=== PATIENT | female | born 1985 | race Caucasian/White ===

== ENCOUNTER 2017-04-22 00:39 | Emergency (ER) | payer BC ==
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
[2017-04-22 04:45] VITALS: BP 114/77
== END 2017-04-22 04:44 | disposition home or self-care (01) ==
LOC: ED 00:39
DX: O9A.311 Physical abuse complicating pregnancy, first trimester (principal); Z3A.11 11 weeks gestation of pregnancy; R11.2 Nausea with vomiting, unspecified; S39.91XA Unspecified injury of abdomen, initial encounter; Y09 Assault by unspecified means; Y93.9 Activity, unspecified; Y92.9 Unspecified place or not applicable
CPT/HCPCS: 36415; 84702; 86850; 86900; 86901; 99282

== ENCOUNTER 2017-06-08 13:25 | Emergency (ER) | payer OTHER ==
[2017-06-08 13:43] VITALS: BP 120/73
--- NOTE | 2017-06-08 14:27 | UC ---
Maricruz Van Gabriel, scribed for Jeff Deleon MD on 06/08/17 at 1350 . Back Pain HPI - HPI Summary HPI Summary: This patient is a 32 year old F presenting to [facility] accompanied by family with a chief complaint of left sided flank since this morning that has been gradually getting worse. Patient reports increased urination. Patient denies unusual vaginal discharge and dysuria. The patient is currently 17 weeks . - History of Current Complaint Chief Complaint: UCBackPain Stated Complaint: LOWER BACK PAIN Hx Obtained From: Patient Hx Last Menstrual Period: 01/06/15 Onset/Duration: Sudden Onset, Still Present Timing: Constant Severity Initially: Mild Severity Currently: Mild Pain Intensity: 8 Pain Scale Used: 0-10 Numeric Associated Signs And Symptoms: Positive: Negative - unusual vaginal discharge and dysuria, Other - increased urination - Allergies/Home Medications Allergies/Adverse Reactions: Allergies Allergy/AdvReac Type Severity Reaction Status Date / Time No Known Allergies Allergy Verified 04/22/17 00:46 Home Medications: Home Medications Multivitamins & [place] [ Gummies/Dha & Fo 0.4-32.5 mg] [History] Pseudoephedrine-Ibuprofen [Cold & Sinus Relief 30-200 mg] 06/08/17 [History] PMH/Surg Hx/FS Hx/Imm Hx Previously Healthy: Yes - Surgical History Surgical History: Yes Surgery Procedure, Year, and Place: tonsillectomy 2004 - Family History Known Family History: Positive: Other - Hyperthyroid Negative: Cardiac Disease, Hypertension, Diabetes - Social History Alcohol Use: Rare Substance Use Type: None Smoking Status (MU): Never Smoked Tobacco Have You Smoked in the Last Year: No - Immunization History Most Recent Influenza Vaccination: 03/22/14 Most Recent Tetanus Shot: 01/09/14 Most Recent Pneumonia Vaccination: none Review of Systems Genitourinary: Negative - unusual vaginal discharge and dysuria, Other - increased urination Musculoskeletal: Negative - flank/back pain on left side All Other Systems Reviewed And Are Negative: Yes Physical Exam Triage Information Reviewed: Yes Appearance: Pain Distress - moderate Vital Signs: Initial Vital Signs Temp 98.1 F 06/08/17 13:34 Pulse 72 06/08/17 13:34 Resp 16 06/08/17 13:34 BP 120/73 06/08/17 13:34 Pulse Ox 100 06/08/17 13:34 Vital Signs Reviewed: Yes Eye Exam: Normal ENT Exam: Normal ENT: Positive: Normal ENT inspection Neck exam: Normal Neck: Positive: Supple, Nontender Respiratory Exam: Normal, Other - CTA Respiratory: Positive: Normal breath sounds Cardiovascular Exam: Normal Cardiovascular: Positive: RRR Abdominal Exam: Normal Abdomen Description: Positive: Nontender, Soft Musculoskeletal Exam: Other - Tenderness over left flank Musculoskeletal: Positive: Strength Intact, ROM Intact Neurological Exam: Normal - sensory/motor intact, A&O x3 Psychological Exam: Normal - affect/mood appropriate Skin Exam: Normal - warm, color reflects adequate perfusion, dry Back Pain Course/Dx - Course Course Of Treatment: RECOMMENDED GOING DIRECTLY TO THE EMERGENCY DEPARTMENT FOR FURTHER EVALUATION AND CARE WE DO NOT HAVE THE ABILITY TO OBTAIN STAT LABS AND HAVE OB HERE IN CLINIC. STABLE AT TRANSFER. DISCUSSED WITH ELVA MURILLO IN THE ED. - Differential Dx/Diagnosis Provider Diagnoses: LEFT FLANK PAIN IN . Discharge - Discharge Plan Condition: Stable Disposition: OTHER Discharge Disposition Comment: PATIENT IS TO GO DIRECTLY TO THE EMERGENCY DEPARTMENT. Patient Education Materials: Abdominal Pain in (ED), Flank Pain (ED) Referrals: Verona Calderon MD [Medical Doctor] - Additional Instructions: GO DIRECTLY TO THE EMERGENCY DEPARTMENT FOR FURTHER EVALUATION OF YOUR FLANK PAIN AT 17 WEEKS OF . The documentation as recorded by the Maricruz hannon Gabriel accurately reflects the service I personally performed and the decisions made by me, Jeff Deleon MD.
== END 2017-06-08 14:00 ==
LOC: UCEAST 13:25
DX: O26.892 Other specified pregnancy related conditions, second trimester (principal); R10.9 Unspecified abdominal pain; Z3A.17 17 weeks gestation of pregnancy
CPT/HCPCS: 99212; G0463

== ENCOUNTER 2017-06-08 14:22 | Emergency (ER) | payer BC, OTHER ==
[2017-06-08 14:30] VITALS: BP 143/73
[2017-06-08 15:15] LABS: Hematocrit 38 % (35-47); Hemoglobin 13.1 g/dl (12.0-16.0); Mean Corpuscular HGB Conc 34 g/dl (31-36); Mean Corpuscular Hemoglobin 30 pg (27-31); Mean Corpuscular Volume 88 fL (80-97); Mean Platelet Volume 8 um3 (7.4-10.4); Red Blood Count 4.34 10^6/ul (4.0-5.4); Red Cell Distribution Width 13 % (10.5-15); White Blood Count 19.9 10^3/ul (3.5-10.8)
[2017-06-08 15:55] LABS: Albumin 4.1 g/dL (3.2-5.2); BUN/Creatinine Ratio 8.9 (8-20); EGFR African American 163.5 (>60); EGFR Non-African American 127.1 (>60); Globulin 3.3 g/dL (2-4); Potassium 3.4 mmol/L (3.5-5.0); Total Bilirubin 0.5 mg/dL (0.2-1.0); Total Protein 7.4 g/dL (6.4-8.9)
== END 2017-06-08 15:29 | disposition left against medical advice (07) ==
LOC: ED 14:22
DX: R10.9 Unspecified abdominal pain (principal); Z53.21 Procedure and treatment not carried out due to patient leaving prior to being seen by health care provider
CPT/HCPCS: 36415; 80053; 83605; 85025

== ENCOUNTER 2017-10-18 17:47 | Inpatient (IN) | payer BC, OTHER ==
[2017-10-18] MEDS ORDERED: Misoprostol TAB* 100 MCG PO ONE ×2 (17:59→22:50)
--- NOTE | 2017-10-18 18:12 | HP ---
General Information - General Information Maternal Age: 32 Grav: 4 Para: 1 SAB: 0 IEA: 2 Estimated Due Date: 11/14/17 Determined By: LMP Gestational Age in Weeks and Days: 36 Weeks and 1 Days Maternal Blood Type and Rh: A Positive - Results this Serology/RPR Result: Non-Reactive Rubella Result: Immune HBsAg Result: Negative HIV Result: Negative GBS Culture Result: Negative Past Medical History Delivery History: Hx Complicated Vaginal Delivery - Meconium, maternal exhaustion, pushed 2'40", episiotomy, vacuum assist, PPH Pertinent Past Medical History: Non-Contributory Pertinent Past Surgical History: See Records - tonsillectomy Pertinent Family History: See Records - Thyroid dz - Antepartal Records Antepartal Records: Reviewed, Uncomplicated Review of Systems Constitutional: Comfortable CV Complaint: No Respiratory: Shortness of Breath: No Gastrointestinal: No Nausea/Vomiting, Normal Bowel Movement Genitourinary: Leaking Fluid, No Dysuria, No Bleeding Musculoskeletal: No Complaint Neurological: No Headache, No Visual Changes Movement: Normal Exam Allergies/Adverse Reactions: Allergies No Known Allergies Allergy (Verified 04/22/17 00:46) BP 136/76 T 98.3 RR 18 HR 90 O2 98 - Measurements Height: 5 ft 5 in Weight: 258 lb Weight in lbs: 258 Body Mass Index (BMI): 42.9 Pre- Weight: 218 lb Weight Gained This : 40 lbs and 0 ozs - Exam Abdomen: No Upper Quadrant Pain Breast: Breast Exam Deferred CVA: No CVA Tenderness Extremities: No Edema Heart: Normal Rhythm/Heart Sounds HEENT: No Significant Findings Lungs: Clear Bilaterally Rectal: Rectal Exam Deferred Reflexes: DTR 2+, - - no clonus Thyroid: - - WNL @ entry to care - Cervical Exam Deferred Exam by RN @ 1230 1cm/thick/vertex -3 - Abdominal Exam Abdomen Exam: Non-Tender Abdomen Exam Comment: EFW 6.5-7lb - Membranes Membrane Status: SROM - Ultrasound/Biophysical Profile Ultrasound Status: Not Done EFM Findings - External Monitor Findings Baseline Heart Rate: 125 External Monitor Findings: Accelerations Present, No Pattern of Variable or Late Decelerations, Variability Moderate Contractions: Irregular, Mild, < 45 Seconds Contraction Frequency: Q 5-8 Assessment/Plan - Reason for Visit Reason for Visit: IUP @ 36+1 weeks gestation here for induction of labor due to PROM without labor. No evidence metabolic acidemia. - Obstetrical Risk Factors Obstetrical Risk Factors: - Plan Plan: Induction, Cervical Ripening Plan Comment: Admit to L&D, Cytotec PO for cervical ripening with repeat doses PRN. PARQ discussion of pitocin and may use PRN. IV in labor d/t history of PPH. Anticipate SVB. - Date/Time of Admission Date of Admission: 10/18/17 Time of Admission: 18:00
[2017-10-18] MEDS ORDERED: Acetaminophen TAB* 325 MG PO ONE (21:32)
[2017-10-19] MEDS ORDERED: Promethazine INJ(RESTRICTED)* 25 MG/ML 1 ML VIAL IV PRN (07:05)
[2017-10-19] MEDS ORDERED: Nalbuphine* 20 MG/ML 1 ML VIAL IV PRN (07:05)
[2017-10-19] MEDS ORDERED: Nalbuphine* 20 MG/ML 1 ML VIAL ONE (07:11)
[2017-10-19] MEDS ORDERED: Promethazine INJ(RESTRICTED)* 25 MG/ML 1 ML VIAL ONE (07:11)
[2017-10-19] MEDS ORDERED: Oxytocin in LR* 20 UNITS/1,000 ML BAG IVPB ONE (08:36)
[2017-10-19] MEDS ORDERED: fentaNYL* 50 MCG/ML 2 ML VIAL (100 MCG VIAL) ONE (08:54)
[2017-10-19] MEDS ORDERED: Acetaminophen TAB* 325 MG PO PRN (09:14)
[2017-10-19] MEDS ORDERED: Witch Hazel PAD* JAR TOPICAL PRN (09:14)
[2017-10-19] MEDS ORDERED: Dibucaine 1% 28.35 GM TUBE PR PRN (09:14)
[2017-10-19] MEDS ORDERED: Glycerin ADULT SUPP PR PRN (09:14)
[2017-10-19] MEDS ORDERED: Oxytocin in LR* 20 UNITS/1,000 ML BAG IVPB SCH (10:00)
[2017-10-19] MEDS: Docusate CAP* 100 MG PO SCH ×2 (12:03→20:31)
[2017-10-19] MEDS: Ibuprofen TAB* 600 MG PO PRN ×2 (12:03→21:56)
[2017-10-19] MEDS ORDERED: Simethicone TAB* 80 MG TAB.CHEW PO SCH (12:30)
[2017-10-20 06:42] LABS: ABS Basophils 0 10^3/ul (0-0.2); ABS Eosinophils 0.1 10^3/ul (0-0.6); ABS Lymphocytes 2.2 10^3/ul (1.0-4.8); ABS Monocytes 0.9 10^3/ul (0-0.8); ABS Neutrophils 14.7 10^3/ul (1.5-7.7); ABS Nucleated RBC 0 10^3/ul; Eosinophil % 0.8 % (0-6); Hematocrit 30 % (35-47); Lymphocyte % 12.3 % (25-47); Mean Corpuscular HGB Conc 34 g/dl (31-36); Mean Corpuscular Hemoglobin 29 pg (27-31); Mean Corpuscular Volume 86 fL (80-97); Mean Platelet Volume 8.7 um3 (7.4-10.4); Nucleated Red Blood Cells % 0; Platelet Count 245 10^3/ul (150-450); Red Blood Count 3.48 10^6/ul (4.0-5.4); Red Cell Distribution Width 15 % (10.5-15); White Blood Count 18.1 10^3/ul (3.5-10.8)
[2017-10-20] MEDS: Docusate CAP* 100 MG PO SCH ×3 (07:55→21:09)
[2017-10-20] MEDS ORDERED: Ferrous Gluconate TAB* 324 MG TAB PO SCH (09:00)
[2017-10-20] MEDS: Ibuprofen TAB* 600 MG PO PRN ×2 (11:48→21:09)
[2017-10-21 08:13] VITALS: BP 135/68
[2017-10-21] MEDS: Docusate CAP* 100 MG PO SCH (10:01)
== END 2017-10-21 11:23 | disposition home or self-care (01) | DRG 775 ==
LOC: MCHOBOUT 17:47 → MCHOB 21:05
PROVIDERS: ADMIT Midwife; ATTEND Midwife
PROC: 4A1HXCZ Monitoring of Products of Conception, Cardiac Rate, External Approach (ICD-10-PCS; 2017-10-18)
PROC: 3E0P7VZ Introduction of Hormone into Female Reproductive, Via Natural or Artificial Opening (ICD-10-PCS; 2017-10-18)
PROC: 10E0XZZ Delivery of Products of Conception, External Approach (ICD-10-PCS; principal; 2017-10-19)
PROC: 0KQM0ZZ Repair Perineum Muscle, Open Approach (ICD-10-PCS; 2017-10-19)
DX: O60.14X0 Preterm labor third trimester with preterm delivery third trimester, not applicable or unspecified (principal); O69.1XX0 Labor and delivery complicated by cord around neck, with compression, not applicable or unspecified; O70.1 Second degree perineal laceration during delivery; Z3A.36 36 weeks gestation of pregnancy; Z37.0 Single live birth; O42.113 Preterm premature rupture of membranes, onset of labor more than 24 hours following rupture, third trimester
CPT/HCPCS: 36415; 85025; A9270-GY; J2300; J2550; J3010; S0191

== ENCOUNTER 2019-04-21 09:01 | Emergency (ER) | payer BC, OTHER ==
[2019-04-21 09:18] VITALS: BP 144/75
--- NOTE | 2019-04-21 09:29 | UC ---
Ear Complaint HPI - HPI Summary HPI Summary: CHIEF COMPLAINT and HPI: This is a healthy 33 y/o white female with right ear pain, 01/12. This condition began 12 hours ago. Since then has noted drainage and increasing pain. No fever. Pain localized to ear. VITAL SIGNS & SaO2 REVIEWED. Within normal limits unless noted here. 144/75. NURSES NOTE REVIEWED. - History of Current Complaint Chief Complaint: UCEar Stated Complaint: EAR ISSUE Time Seen by Provider: 04/21/19 09:26 Hx Last Menstrual Period: 01/06/15 Pain Intensity: 7 - Allergies/Home Medications Allergies/Adverse Reactions: Allergies Allergy/AdvReac Type Severity Reaction Status Date / Time No Known Allergies Allergy Verified 04/21/19 09:09 PMH/Surg Hx/FS Hx/Imm Hx - Additional Past Medical History Additional PMH: PAST MEDICAL HISTORY- CHRONIC and RECURRENT HEALTH PROBLEM LIST REVIEWED. Non-contributory. Information relevant to present complaint: none. VISIT HISTORY REVIEWED: non-contributory. MEDICATIONS & ALLERGIES REVIEWED. HYPERTENSION STATUS: no medications. FAMILY HISTORY: Positive for: cancer. SOCIAL HISTORY: non-smoker, lives [address], has 3 jobs. Previously Healthy: Yes - Surgical History Surgical History: Yes Surgery Procedure, Year, and Place: tonsillectomy 2004 - Family History Known Family History: Positive: Other - Hyperthyroid Negative: Cardiac Disease, Hypertension, Diabetes - Social History Alcohol Use: Rare Alcohol Amount: quit with this Substance Use Type: None Smoking Status (MU): Never Smoked Tobacco Have You Smoked in the Last Year: No - Immunization History Most Recent Influenza Vaccination: 03/22/14 Most Recent Tetanus Shot: 01/09/14 Most Recent Pneumonia Vaccination: none Review of Systems All Other Systems Reviewed And Are Negative: Yes Constitutional: Positive: Negative Skin: Positive: Negative Eyes: Positive: Negative ENT: Positive: Ear Ache - right Respiratory: Positive: Negative Cardiovascular: Positive: Negative Gastrointestinal: Positive: Negative Is Patient Immunocompromised?: No Physical Exam - Summary Physical Exam Summary: Appearance: The patient is well-appearing, is in no pain or distress, and is well-nourished. Eyes: Conjunctiva are clear. Pupils are equal and reactive to light and accommodation. Extra ocular muscle movement is intact. ENT: The hearing is grossly normal, the pharynx is normal, and the TM is normal on the left. Right TM is erythematous. EAC normal. There is no muffled or hoarse voice. No stridor. Neck: The neck is supple and there is no lymphadenopathy. Respiratory: The chest is non-tender to palpation and without crepitus. The lungs are clear, there are normal breath sounds, and there is no respiratory distress. No wheezes, rales or rhonchi. Cardiovascular: Heart sounds reveal a regular rate and rhythm. There are no clicks, rubs or murmurs. There are no carotid bruits or thrills. Circulation is grossly intact. Abdomen: The abdomen is soft and nontender. There is no organomegaly. Bowel sounds are present and within normal limits. No point tenderness at McBurneys point. No CVA tenderness. Musculoskeletal: Strength is intact. The patient moves all extremities. Neurological: The patient is alert. Motor and sensory are examination grossly intact. Speech is normal. Psychological: The patient displays age appropriate behavior, and is conversant. GCS=15. Skin: Negative for rashes. Triage Information Reviewed: Yes Vital Signs: Initial Vital Signs Temp 98.2 F 04/21/19 09:10 Pulse 102 04/21/19 09:10 Resp 18 04/21/19 09:10 BP 144/75 04/21/19 09:10 Pulse Ox 98 04/21/19 09:10 Ear Complaint Course/Dx - Course Course Of Treatment: This is a healthy 33 y/o white female with right ear pain, 01/12. This condition began 12 hours ago. Since then she has noted drainage and increasing pain. No fever. Pain localized to ear. PE notes right red TM. Dx is right otitis media. Patient started on amoxicillin, twice a day for 10 days. - Differential Dx/Diagnosis Differential Diagnosis/HQI/PQRI: Otitis Externa, Otitis Media, TMJ Syndrome Provider Diagnosis: Otitis media Discharge ED - Sign-Out/Discharge Documenting (check all that apply): Patient Departure All imaging exams completed and their final reports reviewed: No Studies - Discharge Plan Condition: Stable Disposition: HOME Prescriptions: Amoxicillin PO (*) [Amoxicillin 875 MG (*)] 875 mg PO BID #20 tab MDD 2 Patient Education Materials: Ear Infection (ED) Referrals: Shannan Braxton CNM [Primary Care Provider] - Additional Instructions: WE DISCUSSED: PLEASE SEEK CARE AT THE EMERGENCY DEPARTMENT IF SYMPTOMS WORSEN OR IF NEW SYMPTOMS DEVELOP. FOLLOW UP WITH YOUR PRIMARY CARE PHYSICIAN IF CONDITION CONTINUES BEYOND 3 DAYS WITHOUT IMPROVEMENT. YOUR DIAGNOSIS IS: right ear infection. YOUR PRESCRIPTION RECOMMENDATION IS: amoxicillin, twice a day for 10 days. OTHER INSTRUCTIONS: recheck if you are not improving at any time; recheck for increased pain or fever. Hypertension Discharge Instructions: Your blood pressure reading today was 144/75 , indicating HYPERTENSION. Follow- up with your primary care provider within 4 weeks for blood pressure check and appropriate recommendations and treatment, as needed. FOR PAIN AND/OR SLEEP: For pain: Ibuprofen (Motrin and other brand names) 400-600mg PLUS acetaminophen (Tylenol and other brand names) 500mg - 1000mg every 8 hours. - Billing Disposition and Condition Condition: STABLE Disposition: Home
== END 2019-04-21 09:52 | disposition home or self-care (01) ==
LOC: UCEAST 09:01
DX: H66.91 Otitis media, unspecified, right ear (principal)
CPT/HCPCS: 99212; G0463